=== PATIENT | male | born 1975 | race Caucasian/White ===

== ENCOUNTER 2020-08-22 21:09 | Emergency (ER) | payer OTHER, MEDICARE, MEDICAID, SELFPAY ==
[2020-08-22 22:02] VITALS: BP 108/74; PULSE 95; RESP 18; TEMP 36.7; O2SAT 96; BMI 29.7
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
[2020-08-22 22:29] VITALS: RESP 16
[2020-08-22] MEDS: Morphine Sulfate 4 MG/ML CARTRIDGE IM (22:29)
[2020-08-22] MEDS: Cyclobenzaprine HCl 10 MG TABLET PO (22:30)
[2020-08-22] MEDS: dexAMETHasone 2 MG TABLET 10 MG PO (22:30)
[2020-08-22 23:37] VITALS: BP 114/77; PULSE 75; RESP 16; TEMP 36.7; O2SAT 94
[2020-08-23 00:04] VITALS: BP 108/76; PULSE 89; RESP 16
== END 2020-08-23 00:07 | disposition home or self-care (01) ==
PROVIDERS: Emergency Provider Internal Medicine
DX: S39.012A Strain of muscle, fascia and tendon of lower back, initial encounter (principal); V43.62XA Car passenger injured in collision with other type car in traffic accident, initial encounter; Y93.89 Activity, other specified; Y92.414 Local residential or business street as the place of occurrence of the external cause; Y99.9 Unspecified external cause status
CPT/HCPCS: 72100; 96372; 99284; 99285; J2270; J8540